=== PATIENT | female | born 2000 | race Caucasian/White ===

== ENCOUNTER 2023-07-25 04:44 | Emergency (ER) | payer BC, SELFPAY ==
[2023-07-25 04:47] VITALS: BP 114/73; PULSE 54; RESP 20; TEMP 36.6; O2SAT 99
== END 2023-07-25 07:08 | disposition left against medical advice (07) ==
LOC: ANHED 06:49
PROVIDERS: PCP Family Medicine
DX: M54.6 Pain in thoracic spine (principal)
CPT/HCPCS: 99199